=== PATIENT | female | born 1985 | race American Indian/Alaskan Native ===

== ENCOUNTER 2016-08-21 15:44 | Emergency (ER) | payer OTHER ==
[2016-08-21 15:55] VITALS: RESP 18; TEMP 97.9; O2SAT 98; BMI 34.4
--- NOTE | 2016-08-21 16:04 | ED PDOC ---
Arrival/HPI - General Time Seen by Provider: 08/21/16 15:54 Historian: Patient Allergies/Home Meds Allergies/Adverse Reactions: Allergies No Known Allergies Allergy (Verified 08/21/16 15:55) Home Medications: Home Meds Medication Instructions Recorded Confirmed No Known Home Med 08/21/16 08/21/16 Physical Exam Vital Signs Temp Pulse Resp BP Pulse Ox 08/21/16 15:54 97.9 F 97 H 18 137/85 98
--- NOTE | 2016-08-21 16:23 | ED PDOC ---
Arrival/HPI - General Chief Complaint: Female Genitourinary Time Seen by Provider: 08/21/16 15:54 Historian: Patient - History of Present Illness Narrative History of Present Illness (Text): 08/21/16 16:24 A 30 year old female, whose past medical history includes , 2 miscarriages , 1 ectopic , s/p right salpingectomy with IUD and mild crohn's disease , presents to the emergency department complaining of lower abdominal cramping. Patient reports positive test 2 days ago and negative tests. Patient discussed with OBGYN, who recommended emergent blood work and transvaginal US. Patient reports some nausea, resolved last week but denies any other complaints at this time. Symptom Onset: Sudden Symptom Course: Unchanged Activities at Onset: Rest Context: Home Past Medical History - Provider Review Nursing Documentation Reviewed: Yes - Cardiac Hx Cardiac Disorders: No - Pulmonary Hx Asthma: Yes - Neurological Hx Neurological Disorder: No - HEENT Hx HEENT Disorder: No - Renal Hx Renal Disorder: No - Endocrine/Metabolic Hx Endocrine Disorders: No - Hematological/Oncological Hx Blood Disorders: No - Integumentary Hx Dermatological Disorder: No - Musculoskeletal/Rheumatological Hx Musculoskeletal Disorders: No - Gastrointestinal Hx Crohn's Disease: Yes - Genitourinary/Gynecological Other/Comment: IUD - Psychiatric Hx Psychophysiologic Disorder: No Hx Substance Use: No - Anesthesia Hx Anesthesia: Yes Family/Social History - Physician Review Nursing Documentation Reviewed: Yes Family/Social History: No Known Family HX Smoking Status: Never Smoked Hx Alcohol Use: Yes Frequency of alcohol use: Socially Hx Substance Use: No Allergies/Home Meds Allergies/Adverse Reactions: Allergies No Known Allergies Allergy (Verified 08/21/16 15:55) Home Medications: Home Meds Medication Instructions Recorded Confirmed No Known Home Med 08/21/16 08/21/16 Review of Systems - Review of Systems Constitutional: absent: Fevers Eyes: Normal ENT: Normal Respiratory: absent: SOB Cardiovascular: Normal Gastrointestinal: Abdominal Pain (lower and cramping), Nausea (resolved) Genitourinary Female: absent: Dysuria, Frequency, Hematuria Musculoskeletal: Back Pain (mid low back pain) Skin: Normal Neurological: Normal Physical Exam Vital Signs Reviewed: Yes Vital Signs Temp Pulse Resp BP Pulse Ox 08/21/16 16:46 85 18 135/79 98 08/21/16 15:55 97.9 F 97 H 18 137/85 98 08/21/16 15:54 97.9 F 97 H 18 137/85 98 Temperature: Afebrile Blood Pressure: Normal Pulse: Regular Respiratory Rate: Normal Appearance: Positive for: Well-Appearing, Non-Toxic, Comfortable Pain Distress: None Mental Status: Positive for: Alert and Oriented X 3 - Systems Exam Head: Present: Atraumatic, Normocephalic Pupils: Present: PERRL Conjunctiva: Present: Normal Mouth: Present: Moist Mucous Membranes Pharnyx: Present: Normal. No: ERYTHEMA, EXUDATE Neck: Present: Normal Range of Motion Respiratory/Chest: Present: Clear to Auscultation, Good Air Exchange. No: Respiratory Distress, Accessory Muscle Use Cardiovascular: Present: Regular Rate and Rhythm, Normal S1, S2. No: Murmurs Abdomen: Present: Normal Bowel Sounds. No: Tenderness, Distention, Peritoneal Signs Back: Present: Normal Inspection Upper Extremity: Present: Normal Inspection. No: Cyanosis, Edema Lower Extremity: Present: Normal Inspection. No: Edema Neurological: Present: GCS=15, CN II-XII Intact, Speech Normal Skin: Present: Warm, Dry, Normal Color. No: Rashes Psychiatric: Present: Alert, Oriented x 3, Normal Insight, Normal Concentration Medical Decision Making ED Course and Treatment: 08/21/16 16:21 Impression: A 30 year old female with lower abdominal cramping. Plan: -- transvaginal US -- labs -- Urinalysis -- Reassess and disposition Progress Notes: Patient's OBGYN recommended emergent blood work and transvaginal US. 08/21/16 18:06 Serum french-HCG is normal, so she is not at this time. Remainder of blood work is unremarkable. Urine shows RBCs with no mod bacteria but no LE/ NIt and has no urinary symptoms. Will hold on abx; patient will follow cultures results. Sono with IUD in place with flow to both ovaries and L adnexal complex cyst with otherwise no acute findings. Ok for d/c. - Lab Interpretations Lab Results: 08/21/16 16:20 08/21/16 16:20 Lab Results 08/21/16 16:20: Urine Color Yellow, Urine Appearance Sl cloudy, Urine pH 6.0, Ur Specific [place] >= 1.030, Urine Protein Trace H, Urine Glucose (UA) Negative , Urine Ketones Negative, Urine Blood Large H, Urine Nitrate Negative, Urine Bilirubin Negative, Urine Urobilinogen 0.2, Ur Leukocyte Esterase Negative, Urine RBC 10 - 15, Urine WBC 1 - 3, Ur Epithelial Cells 6 - 8, Urine Bacteria Mod, Urine HCG, Qual Negative 08/21/16 16:20: Beta HCG, Quant < 2.39 08/21/16 16:20: Sodium 137, Potassium 3.8, Chloride 103, Carbon Dioxide 27, Anion Gap 11, BUN 15, Creatinine 0.8, Est GFR ( Amer) > 60, Est GFR (Non- Af Amer) > 60, Random Glucose 93, Calcium 9.3, Total Bilirubin 0.6, AST 41 H, ALT 37, Alkaline Phosphatase 56, Total Protein 7.6, Albumin 4.0, Globulin 3.6, Albumin/Globulin Ratio 1.1 08/21/16 16:20: WBC 4.6, RBC 4.13, Hgb 11.9 L, Hct 35.0 L, MCV 84.7, MCH 28.8, MCHC 34.0, RDW 12.9, Plt Count 160, MPV 11.8 H, Gran % 43.3 L, Lymph % (Auto) 43.7 H, [place] % (Auto) 10.9 H, Eos % (Auto) 1.7, Baso % (Auto) 0.4, Gran # 1.98, Lymph # 2.0, Frontier # 0.5, Eos # 0.1, Baso # 0.02 I have reviewed the lab results: Yes - RAD Interpretation Radiology Orders: 08/21/16 16:06 OB TRANSVAGINAL [US] Stat - Scribe Statement The provider has reviewed the documentation as recorded by the Gato Barrios Provider Scribe Attestation: All medical record entries made by the Scribe were at my direction and personally dictated by me. I have reviewed the chart and agree that the record accurately reflects my personal performance of the history, physical exam, medical decision making, and the department course for this patient. I have also personally directed, reviewed, and agree with the discharge instructions and disposition. Disposition/Present on Arrival - Present on Arrival Any Indicators Present on Arrival: No History of DVT/PE: No History of Uncontrolled Diabetes: No Urinary Catheter: No History of Decub. Ulcer: No History Surgical Site Infection Following: None - Disposition Have Diagnosis and Disposition been Completed?: Yes Diagnosis: Pelvic cramping, Complex cyst of left ovary Disposition: HOME/ ROUTINE Disposition Time: 18:05 Patient Plan: Discharge Condition: GOOD Discharge Instructions (ExitCare): Ovarian Cyst (ED) Additional Instructions: Tylenol or nsaids as needed for pain. Make sure you are well hydrated. Follow up with your OBGYN. Return to the emergency departmet if any new concerning symptoms. [facility] - Follow up with primary Isaac Avendaño MD [Medical Doctor] - Follow up with primary
[2016-08-21 16:43] LABS: ADD MANUAL DIFF? NO
[2016-08-21 16:47] VITALS: BP 135/79; PULSE 85
[2016-08-21 16:52] LABS: BASO # 0.02 K/mm3 (0.0-2.0); BASO % 0.4 % (0.0-3.0); EOS # 0.1 (0.0-0.7); EOS % 1.7 % (1.5-5.0); GRAN # 1.98 (1.4-6.5); GRAN % 43.3 % (50.0-68.0); LYMPH % 43.7 % (22.0-35.0); MEAN CELL VOLUME 84.7 fL (80.0-105.0); MEAN CORPUSCULAR HEMOGLOBIN 28.8 pg (25.0-35.0); MEAN PLATELET VOLUME 11.8 fl (7.0-11.0); MONO # 0.5 (0.1-0.6); MONO % 10.9 % (1.0-6.0); PLATELET COUNT 160 10^3/uL (120.0-450.0); RED CELL DISTRIBUTION WIDTH 12.9 % (11.5-14.5); WHITE BLOOD COUNT 4.6 10^3/ul (4.5-11.0)
[2016-08-21 17:00] LABS: URINE BILIRUBIN NEGATIVE (NEGATIVE); URINE BLOOD LARGE (NEGATIVE); URINE GLUCOSE (UA) NEGATIVE (NEGATIVE); URINE KETONE NEGATIVE (NEGATIVE); URINE LEUKOCYTE ESTERASE NEGATIVE Leu/uL (NEGATIVE); URINE PROTEIN TRACE mg/dL (<30 mg/dL); URINE UROBILINOGEN 0.2 E.U./dL (<1 E.U./dL)
[2016-08-21 17:01] LABS: URINE COLOR YELLOW (YELLOW)
[2016-08-21 17:02] LABS: URINE APPEARANCE SL CLOUDY (CLEAR)
[2016-08-21 17:11] LABS: ALB/GLOB RATIO 1.1 (1.1-1.8); ALKALINE PHOSPHATASE 56 U/L (38-133); ALT/SGPT 37 U/L (7-56); AST/SGOT 41 U/L (15-39); BILIRUBIN,TOTAL 0.6 mg/dL (0.2-1.3); BLOOD UREA NITROGEN 15 mg/dL (7-21); CALCIUM 9.3 mg/dL (8.4-10.5); CARBON DIOXIDE 27 mmol/L (21-33); CHLORIDE 103 mmol/L (98-107); GFR AFRICAN-AMERICAN > 60; GLUCOSE,RANDOM 93 mg/dL (70-110); POTASSIUM 3.8 mmol/L (3.6-5.0); SODIUM 137 mmol/L (132-148); TOTAL PROTEIN 7.6 g/dL (5.8-8.3)
[2016-08-21 17:17] LABS: URINE BACTERIA MOD (NEG)
--- NOTE | 2016-08-21 17:55 | US ---
Indication: positive , cramps, history of ectopic Comparison: None available Technique: Real-time transabdominal pelvic ultrasound was performed. In addition a transvaginal pelvic ultrasound was necessary to better depict pelvic anatomy. Findings: The uterus measures approximately 9.8 x 6.2 x 6.6 cm. Retroverted. Cervix length measures approximately 4.0 cm. The endometrial stripe measures approximately 3 mm in diameter. Small fluid is noted within the endometrial canal. An IUD is noted within the endometrial canal at the level of the lower uterine segment. An intrauterine gestational sac is not identified. The right ovary measures 2.1 x 2.0 x 2.5 cm. The left ovary measures 4.0 x 4.6 x 4.2 cm. 3.7 x 3.6 x 3.3 cm probable complex left ovarian cyst. Blood flow was demonstrated to both ovaries. Small fluid noted in the left adnexal region. Impression: Trace fluid in the endometrial canal. No intrauterine gestational sac identified. If indeed the patient is based on serum beta HCG values, the sonographic findings represent either: Very early IUP; embryonic demise; ectopic gestation. Follow-up with serial quantitative serum beta HCG measurements and post OBGYN follow-up is recommended, since ectopic gestation cannot be excluded based only on sonographic findings. Small left adnexal fluid. 3.7 cm probable complex left ovarian cyst. IUD is noted at approximately the level of the lower uterine segment endometrial canal. Recommend gynecologic follow-up.
== END 2016-08-21 18:15 | disposition home or self-care (01) ==
LOC: ED 15:44
DX: N83.202 Unspecified ovarian cyst, left side (principal); R10.2 Pelvic and perineal pain